=== PATIENT | male | born 1985 | race African-American/Black ===

== ENCOUNTER 2017-12-28 13:14 | Emergency (ER) | payer SELFPAY ==
[~2017-12-28] VITALS: Ht 170.2 cm; Wt 83.1 kg
[2017-12-28 14:02] VITALS: BP 196/97
[2017-12-28] MEDS ORDERED: HYDR-971 PO (14:41)
[2017-12-28] MEDS ORDERED: CLIN300C8 PO (14:41)
--- NOTE | 2017-12-28 14:41 | PHYS DOC ---
Past Medical History Past Medical History: Diabetes-Type II, Hypertension, Other Additional Past Medical Histor: hernia Past Surgical History: No Surgical History Alcohol Use: None Drug Use: None Adult General Chief Complaint Chief Complaint: DENTAL PROBLEM HPI HPI Patient is a 32 year old male presents to the ED complaining of dental pain x 2 days. History of dental pain. States he needs to have a tooth on his lower left jaw removed. Describes the pain as sharp. Rates the pain as 8 out of 10. States he has not been able to get into a dentist yet. Denies fever, nausea/ vomiting, difficulty swallowing, chest pain, shortness of breath, headache or vision changes. Review of Systems Review of Systems Constitutional: Denies fever or chills [] Eyes: Denies change in visual acuity, redness, or eye pain [] HENT: Complains of dental pain. Denies nasal congestion or sore throat [] Respiratory: Denies cough or shortness of breath [] Cardiovascular: No additional information not addressed in HPI [] Musculoskeletal: Denies back pain or joint pain [] Integument: Denies rash or skin lesions [] Neurologic: Denies headache, focal weakness or sensory changes [] All other systems were reviewed and found to be within normal limits, except as documented in this note. Allergies Allergies Allergies Coded Allergies Type Severity Reaction Last Updated Verified No Known Drug Allergies 01/10/15 No Physical Exam Physical Exam Constitutional: Well developed, well nourished, no acute distress, non-toxic appearance. [] HENT: Normocephalic, atraumatic, bilateral external ears normal, oropharynx moist, no oral exudates, nose normal. Mild left lower molar teeth rotted off to the gum line. No abscess or fluctuance.] Eyes: PERRLA, EOMI, conjunctiva normal, no discharge. [] Neck: Normal range of motion, no tenderness, supple, no stridor. [] Cardiovascular:Heart rate regular rhythm, no murmur [] Lungs & Thorax: Bilateral breath sounds clear to auscultation [] Skin: Warm, dry, no erythema, no rash. [] Neurologic: Alert and oriented X 3, normal motor function, normal sensory function, no focal deficits noted. [] Psychologic: Affect normal, judgement normal, mood normal. [] Current Patient Data Vital Signs Vital Signs Date Time Temp Pulse Resp B/P (MAP) Pulse Ox O2 Delivery O2 Flow Rate FiO2 12/28/17 14:02 99.9 100 18 196/97 (130) 98 Room Air 99.9 EKG EKG [] Radiology/Procedures Radiology/Procedures [] Course & Med Decision Making Course & Med Decision Making Pertinent Labs and Imaging studies reviewed. (See chart for details) []Will treat with antibiotics and analgesics outpatient. Patient well- appearing. Tolerating by mouth. No abscess or fluctuance. Provided community resource list for dental clinics. Discussed symptomatic treatment at home. Discussed follow-up and reasons to return to the ED. Patient understands and agrees with plan. Staff Physician Addendum: I was working in the ER during the course of this patient's visit. I was available for consultation as needed, but I was not directly involved in the care of this patient. Dragon Disclaimer Dragon Disclaimer This electronic medical record was generated, in whole or in part, using a voice recognition dictation system. Departure Departure Impression: Primary Impression: Dental caries Additional Impression: Pain, dental Disposition: HOME, SELF-CARE Condition: STABLE Referrals: NO PCP (PCP) STARR CONNOLLY DDS Patient Instructions: Dental Abscess Scripts Hydrocodone/Apap 5-325 (NORCO 5-325 TABLET) 1 Each Tablet 1 TAB PO BID for 4 Days, #8 TAB Prov: HUSEYIN PETERSON 12/28/17 Clindamycin Hcl (CLINDAMYCIN HCL) 300 Mg Capsule 1 CAP PO TID for 7 Days, #21 CAP Prov: HUSEYIN PETERSON 12/28/17 Problem Qualifiers HUSEYIN PETERSON Dec 28, 2017 14:41 PASTOR SKINNER MD Dec 30, 2017 19:35
== END 2017-12-28 15:00 | disposition home or self-care (01) ==
LOC: ER 13:14
DX: K02.9 Dental caries, unspecified (principal); E11.9 Type 2 diabetes mellitus without complications; I10 Essential (primary) hypertension
CPT/HCPCS: 99283